=== PATIENT | female | born 1950 | race Caucasian/White ===

== ENCOUNTER 2018-11-02 10:29 | Day surgery (SDC) | payer MEDICARE, MEDICAID ==
[~2018-11-02] VITALS: Ht 160 cm; Wt 54.4 kg
[2018-11-02] MEDS ORDERED: LIDOCAINE 2% 100 MG/5 ML UJET TP ONE (13:27)
[2018-11-02] MEDS ORDERED: MIDAZOLAM 2 MG/2 ML VIAL ONE (13:27)
[2018-11-02] MEDS ORDERED: fentaNYL 0.05 MG/ML VIAL ONE (13:27)
[2018-11-02] MEDS ORDERED: MIDAZOLAM 2 MG/2 ML VIAL IVP ONE (14:20)
[2018-11-02] MEDS ORDERED: fentaNYL 0.05 MG/ML VIAL IVP ONE (14:20)
== END 2018-11-02 14:36 | disposition home or self-care (01) ==
LOC: MMU 10:29 → MDS 10:29
PROVIDERS: ATTEND Internal Medicine Gastroenterology
DX: Z12.11 Encounter for screening for malignant neoplasm of colon (principal); K57.30 Diverticulosis of large intestine without perforation or abscess without bleeding; B96.81 Helicobacter pylori [H. pylori] as the cause of diseases classified elsewhere; J45.909 Unspecified asthma, uncomplicated; E03.9 Hypothyroidism, unspecified; Z88.0 Allergy status to penicillin; Z79.899 Other long term (current) drug therapy; Z98.890 Other specified postprocedural states
CPT/HCPCS: 36415; 43239; 86677; G0121; J2250; J3010